=== PATIENT | female | born 1955 | race Caucasian/White ===

== ENCOUNTER 2017-04-05 08:37 | Emergency (ER) | END 2017-04-05 12:59 | disposition home or self-care (01) ==

== ENCOUNTER 2017-07-27 10:32 | Emergency (ER) | END 2017-07-27 13:02 | disposition home or self-care (01) ==

== ENCOUNTER 2018-07-04 14:13 | Emergency (ER) | payer OTHER ==
[~2018-07-04] VITALS: Wt 90.0 kg
[~2018-07-04 14:13] MED LIST: HYDR-4011 PO; NAPR-985 PO; OLME40TA13 PO; RANO500T2 PO
[2018-07-04 14:15] VITALS: BP 160/89; PULSE 78; RESP 18
[2018-07-04] MEDS ORDERED: ONDANSETRON (ODT) 4 MG TAB ODT STA (14:43)
[2018-07-04] MEDS ORDERED: HYDR-4011 PO (14:45)
[2018-07-04] MEDS ORDERED: DOXY100T20 PO (14:45)
[2018-07-04] MEDS ORDERED: HYDROCODONE/APAP (5/325) TAB PO ONE (15:00)
[2018-07-04] MEDS ORDERED: LIDOCAINE 1% (MPF) 5 ML VIAL INJ ONE (15:00)
[2018-07-04] MEDS ORDERED: CEFTRIAXONE 1 GM INJ IM ONE (15:00)
--- NOTE | 2018-07-04 15:18 | ERD ---
ER Documentation Chief Complaint Chief Complaint tooth ache HPI 62-year-old female presenting with toothache. Patient states is been consistently going on for the last few days. She noted some swelling and pain to the left lower jaw space with no fevers. Patient denies other medical problems. She states that she was seen by the dentist but they told her to come the emergency room as she needed to have treatment for infection. Patient de nies any medical problems. NKDA. Surgical history denies. Social history denies ROS All systems reviewed and are negative except as per history of present illness. Medications Home Meds Active Scripts Doxycycline Hyclate* (Doxycycline Hyclate*) 100 Mg Tablet.dr, 100 MG PO BID for 10 Days, TAB Prov:OLIVIER HERRERA PA-C 07/04/18 Hydrocodone/Acetaminophen ([place] 5-325 Tablet) 1 Each Tablet, 1 TAB PO Q6H PRN for PAIN, #7 TAB Prov:OLIVIER HERRERA PA-C 07/04/18 Naproxen* (Naprosyn*) 500 Mg Tablet, 500 MG PO BID PRN for PAIN AND/OR INFLAMMATION, #30 TAB Prov:YOKASTA JACKSON MD 07/27/17 Reported Medications Hydrocodone/Acetaminophen ([place] 5-325 Tablet) 1 Each Tablet, 1 EACH PO DAILY PRN for SEVERE PAIN LEVEL 7-10, TAB 07/27/17 Olmesartan Medoxomil (Benicar) 40 Mg Tablet, 40 MG PO DAILY, #30 TAB 01/07/16 Ranolazine* (Ranexa*) 500 Mg Tab.sr.12h, 500 MG PO Q12, TAB 01/07/16 Allergies Allergies: Coded Allergies: No Known Drug Allergy (Verified Allergy, Unknown, 07/27/17) PMhx/Soc History of Surgery: Yes (APPENDIX) Anesthesia Reaction: No Hx Neurological Disorder: Yes (CVA??-per patient) Hx Respiratory Disorders: No Hx Cardiac Disorders: Yes (HTN, HLD) Hx Psychiatric Problems: No Hx Miscellaneous Medical Probl: No Hx Alcohol Use: No Hx Substance Use: No Hx Tobacco Use: No FmHx Family History: No diabetes, No coronary disease, No other Physical Exam Vitals Vital Signs Date Temp Pulse Resp B/P (MAP) Pulse Ox O2 O2 Flow FiO2 Time Delivery Rate 07/04/18 98.1 78 18 160/89 99 14:15 (112) Physical Exam GENERAL: The patient is well-appearing, well-nourished, in no acute distress HEENT: Atraumatic. Conjunctivae are pink. Pupils equal, round, and reactive to light. There is no scleral icterus. Tympanic membranes clear bilaterally. Oropharynx clear. Poor dentition noted throughout. Mild swelling noted to the left lower jaw space with no airway narrowing. No fullness noted to the posterior oropharynx. NECK: C-spine is soft and supple. There is no meningismus. There is no cervical lymphadenopathy. CHEST: Clear to auscultation bilaterally. There are no rales, wheezes or rhonchi. HEART: Regular rate and rhythm. No murmurs, clicks, rubs or gallops. No S3 or S4. Results 24 hrs Current Medications Medications Dose Sig/Nito Start Time Status Last (Trade) Ordered Route PRN Stop Time Admin Dose Reason Admin Ceftriaxone 1 gm ONCE ONCE 07/04/18 DC 07/04/18 Sodium IM 15:00 07/04/18 14:51 (Rocephin) 15:01 Lidocaine 5 ml ONCE ONCE 07/04/18 DC 07/04/18 (Xylocaine INJ 15:00 07/04/18 14:51 1% (Mpf)) 15:01 1 tab ONCE ONCE 07/04/18 DC 07/04/18 Acetaminophen PO 15:00 07/04/18 14:51 / 15:01 Hydrocodone Bitart ([place] (5/325)) Ondansetron 4 mg ONCE STAT 07/04/18 DC 07/04/18 HCl (Zofran ODT 14:43 07/04/18 14:51 Odt) 14:44 Procedures/MDM ER course: [place] and Zofran given in ED. Rocephin given in the ED. MDM: 62-year-old female presenting with dental infection. Patient is given antibiotics. Patient is discharged with strict ER precautions and told to follow-up with primary care within 1 to 2 days for close evaluation. Patient was placed on oral antibiotics. I have low suspicion for airway compromise. I low suspicion for Nathaniel's angina. All questions answered at discharge Departure Diagnosis: Primary Impression: Tooth disease Condition: Stable Patient Instructions: Tooth Abscess Referrals: [facility] ([facility] walk in clinic) Additional Instructions: FOLLOW UP WITH YOUR PRIMARY CARE PHYSICIAN TOMORROW.Return to this facility if you are not improving as expected. OLIVIER HERRERA PA-C July 04, 2018 15:18
== END 2018-07-04 19:20 | disposition home or self-care (01) ==
LOC: FTE 14:13
DX: K08.89 Other specified disorders of teeth and supporting structures (principal); I10 Essential (primary) hypertension
CPT/HCPCS: 96372; 99284; J0696

== ENCOUNTER 2018-07-11 09:19 | Emergency (ER) | payer OTHER ==
[~2018-07-11] VITALS: Ht 165.1 cm; Wt 70.0 kg
[~2018-07-11 09:19] MED LIST changes: +DOXY100T20 PO
[2018-07-11 09:59] VITALS: BP 142/76; PULSE 63; RESP 16; Ht 165.1 cm; Wt 70.0 kg
[2018-07-11] MEDS ORDERED: CEFTRIAXONE 1 GM INJ IM ONE (11:00)
[2018-07-11] MEDS ORDERED: IBUPROFEN 600 MG TAB PO ONE (11:00)
[2018-07-11] MEDS ORDERED: LIDOCAINE 1% (MDV) 20 ML INJ SC ONE (11:00)
[2018-07-11] MEDS ORDERED: traMADol 50 MG TAB PO ONE (11:00)
[2018-07-11] MEDS ORDERED: CEPH-443 PO (11:19)
[2018-07-11] MEDS ORDERED: IBUP-1542 PO (11:19)
[2018-07-11] MEDS ORDERED: TRAM50TA2 PO (11:19)
--- NOTE | 2018-07-11 11:22 | ERD ---
ER Documentation Chief Complaint Chief Complaint RETURN VISIT FOR DENTAL PAIN; COMPLETED RX ANTIBIOTICS FROM PREVIOUS VISIT HPI 62-year-old female presents with left lower dental pain. She was prescribed antibiotics for it from a visit 1 week ago which she completed. She did see her dentist who states that she had PERSISTENT infection and therefore was continuing to delay definitive dental treatment. She was not prescribed antibiotics by her dentist. She denies fevers, vomiting, shortness of breath or chest pain. She has pain rating to her left TMJ. She denies difficulty swallowing, difficulty breathing. ROS All systems reviewed and are negative except as per history of present illness. Medications Home Meds Active Scripts Tramadol HCl (Tramadol HCl) 50 Mg Tablet, 50 MG PO Q4 PRN for PAIN, #15 TAB Prov:VANDANA REILLY MD 07/11/18 Ibuprofen* (Motrin*) 600 Mg Tab, 600 MG PO Q6, #20 TAB Prov:VANDANA REILLY MD 07/11/18 Cephalexin* (Keflex*) 500 Mg Capsule, 500 MG PO QID for 10 Days, CAP Prov:VANDANA REILLY MD 07/11/18 Doxycycline Hyclate* (Doxycycline Hyclate*) 100 Mg Tablet.dr, 100 MG PO BID for 10 Days, TAB Prov:OLIVIER HERRERA PA-C 07/04/18 Hydrocodone/Acetaminophen ([place] 5-325 Tablet) 1 Each Tablet, 1 TAB PO Q6H PRN for PAIN, #7 TAB Prov:OLIVIER HERRERA PA-C 07/04/18 Naproxen* (Naprosyn*) 500 Mg Tablet, 500 MG PO BID PRN for PAIN AND/OR INFLAMMATION, #30 TAB Prov:YOKASTA JACKSON MD 07/27/17 Reported Medications Hydrocodone/Acetaminophen ([place] 5-325 Tablet) 1 Each Tablet, 1 EACH PO DAILY PRN for SEVERE PAIN LEVEL 7-10, TAB 07/27/17 Olmesartan Medoxomil (Benicar) 40 Mg Tablet, 40 MG PO DAILY, #30 TAB 01/07/16 Ranolazine* (Ranexa*) 500 Mg Tab.sr.12h, 500 MG PO Q12, TAB 01/07/16 Allergies Allergies: Coded Allergies: No Known Drug Allergy (Verified Allergy, Unknown, 07/27/17) PMhx/Soc History of Surgery: Yes (appendectomy) Anesthesia Reaction: No Hx Neurological Disorder: Yes (CVA??-per patient) Hx Respiratory Disorders: No Hx Cardiac Disorders: Yes (HTN, HLD) Hx Psychiatric Problems: No Hx Miscellaneous Medical Probl: No Hx Alcohol Use: No Hx Substance Use: No Hx Tobacco Use: No Smoking Status: Never smoker FmHx Family History: No diabetes, No coronary disease, No other Physical Exam Vitals Vital Signs Date Temp Pulse Resp B/P (MAP) Pulse Ox O2 O2 Flow FiO2 Time Delivery Rate 07/11/18 98.1 63 16 142/76 99 09:59 (98) Physical Exam Const: No acute distress Head: Atraumatic Eyes: Normal Conjunctiva ENT: Normal External Ears, Nose and Mouth. TMs normal. Inflammation and tenderness at the base of the left lower molars on the left jawline without facial erythema or induration. Airway patent. Mildly positive TMJ left greater than right. Neck: Full range of motion. No meningismus. Resp: Clear to auscultation bilaterally Cardio: Regular rate and rhythm, no murmurs Abd: Soft, non tender, non distended. Normal bowel sounds Skin: No petechiae or rashes Back: No midline or flank tenderness Ext: No cyanosis, or edema Neur: Awake and alert Psych: Normal Mood and Affect Results 24 hrs Current Medications Medications Dose Sig/Nito Start Time Status Last (Trade) Ordered Route PRN Stop Time Admin Dose Reason Admin Ibuprofen 600 mg ONCE ONCE 07/11/18 DC 07/11/18 (Motrin) PO 11:00 11:00 07/11/18 11:01 Ceftriaxone 1 gm ONCE ONCE 07/11/18 DC 07/11/18 Sodium IM 11:00 11:01 (Rocephin) 07/11/18 11:01 Lidocaine 20 ml ONCE ONCE 07/11/18 DC 07/11/18 (Xylocaine SC 11:00 11:01 1% (Mdv) 20 07/11/18 11:01 ml) Tramadol 50 mg ONCE ONCE 07/11/18 DC 07/11/18 HCl PO 11:00 11:00 (Ultram) 07/11/18 11:01 Procedures/MDM Patient presents with persistent left lower dental pain. Plan of her dentist is uncertain but she was apparently referred back to the ER for continued treatment of infection. Is no signs of facial cellulitis, sepsis. Mild swelling does not suggest significant abscess. She is administered 1 g Rocephin IM. We will continue antibiotics with Keflex, ibuprofen and tramadol for pain, with continued dental follow-up and return precautions for difficulty swallowing, difficulty breathing, fevers, facial swelling, redness, new worsening symptoms. The patient was stable with no new complaints during the ER course. Clinically, there is no current evidence to suggest meningitis, sepsis, acute abdomen, pneumonia, stroke, acute coronary syndrome, pulmonary embolism, aortic dissection or any other emergent condition appearing to require further evaluation or hospitalization. Patient counseled regarding my diagnostic impression and care plan. Prior to discharge all questions answered. Pt agrees with treatment plan and understands strict return precautions. Pt is instructed to follow up with primary care provider within 24-48 hours. Precautionary instructions provided including instructions to return to the ER if not i mproving or for any worsening or changing symptoms or concerns. Disclaimer: Inadvertent spelling and grammatical errors are likely due to EHR/dictation software use and do not reflect on the overall quality of patient care. Also, please note that the electronic time recorded on this note does not necessarily reflect the actual time of the patient encounter. Departure Diagnosis: Primary Impression: Pain, dental Condition: Stable Patient Instructions: Dental Pain Additional Instructions: Va al powell doctor/ specialista para mas evaluacon en el proximo semana. posiblemente necesita autorizado de [place] doctor primario para specialista. Regresa para fiebre, o mas o nueva simptomas. VANDANA REILLY MD July 11, 2018 11:22
== END 2018-07-11 11:47 | disposition home or self-care (01) ==
LOC: FTE 09:19
DX: K08.89 Other specified disorders of teeth and supporting structures (principal); I10 Essential (primary) hypertension; Z86.73 Personal history of transient ischemic attack (TIA), and cerebral infarction without residual deficits
CPT/HCPCS: 96372; J0696; Z7502; Z7610